=== PATIENT | male | born 1965 | race Caucasian/White ===

== ENCOUNTER 2019-08-10 12:51 | Emergency (ER) | payer OTHER ==
[2019-08-10 12:59] VITALS: RESP 18; TEMP 99
[2019-08-10] MEDS ORDERED: HYDROcodone/APAP 10-325MG 1 EACH TAB PO ONE (13:41)
[2019-08-10 14:03] VITALS: BP 121/78; PULSE 80
--- NOTE | 2019-08-10 14:16 | ED ---
Back Pain HPI - General Chief Complaint: Back Pain/Injury Stated Complaint: [facility]-back injury Source: patient Limitations: no limitations - History of Present Illness Initial Comments: 53-year-old male with chronic back pain who sees a pain specialist and gets monthly injections usually presents emergency department today for chief complaint of bilateral low back pain he states it feels typical of it chronic low back pain no changes that are worrisome he states he has been going up and down ladders at work doing strenuous activity is slightly increase his baseline back pain he states he also has not been able to get his monthly injections. Patient states when he expressed his work that he was having low back pain he was told to come to the [facility] for evaluation. Patient states he does not feel he needs to come here today. Patient denies any loss of bowel bladder control leg weakness loss of sensation of the lower extremities denies any urinary retention or loss of bladder control. Patient denies any fevers IV drug use, direct trauma or falls. Patient ambulatory on arrival in no distress. BP elevated-pt states hospitals make him anxious. - Related Data Allergies Allergy/AdvReac Type Severity Reaction Status Date / Time No Known Allergies Allergy Verified 08/10/19 12:54 Review of Systems ROS Statement: Those systems with pertinent positive or pertinent negative responses have been documented in the HPI. ROS Other: All systems not noted in ROS Statement are negative. Past Medical History Additional Past Medical History / Comment(s): chronic back pain History of Any Multi-Drug Resistant Organisms: None Reported Additional Past Surgical History / Comment(s): back surgery Past Psychological History: No Psychological Hx Reported Smoking Status: Never smoker Past Alcohol Use History: Occasional Past Drug Use History: None Reported General Exam - General Exam Comments Initial Comments: General: The patient is awake and alert, in no distress Eye: Pupils are equal, round and reactive to light, extra-ocular movements are intact. No nystagmus. There is normal conjunctiva bilaterally. No signs of icterus. Ears, nose, mouth and throat: There are moist mucous membranes and no oral lesions. Gastrointestinal: Soft, non-distended, non-tender abdomen without masses or organomegaly noted. There is no rebound or guarding present. Musculoskeletal: Normal back inspection. Band-like tenderness to palpation across low back paravertebral muscles. No midline tenderness to palpation fo the lumbar or thoracic spine. Normal ROM, no tenderness. Strength 5/5 of the LE b/l. Sensation intact of the LE b/l. radial pulses equal bilaterally 2+. Neurological: A&O x 3. CN II-XII intact grossly, There are no obvious motor or sensory deficits. Coordination appears grossly intact. Speech is normal. Skin: Skin is warm and dry and no rashes or lesions are noted. Psychiatric: Cooperative, appropriate mood & affect, normal judgment. Limitations: no limitations Course Vital Signs 08/10/19 08/10/19 12:55 13:58 Temperature 99 F Pulse Rate 92 80 Respiratory 18 18 Rate Blood Pressure 155/120 121/78 O2 Sat by Pulse 96 97 Oximetry Medical Decision Making - Medical Decision Making Given home dose of meds. No concerning findings. no trauma. Patient neurovascularly intact. At this time feel patient is safe for discharge with outpatient follow patient is agreeable to this care plan I did record patient rest take ibuprofen Tylenol as needed, apply heat to the radha as directed and f/u with PCP he is agreeable with care plan and discharge at this time. Disposition Clinical Impression: Chronic back pain Disposition: HOME SELF-CARE Condition: Good Instructions (If sedation given, give patient instructions): Low Back Strain (ED) Additional Instructions: Please use medication as discussed. Please follow-up with family doctor in the next 2 days. Please return to emergency room if the symptoms increase or worsen or for any other concerns. Is patient prescribed a controlled substance at d/c from ED?: No Referrals: [facility],Clinic [Primary Care Provider] - 1-2 days Time of Disposition: 14:15
== END 2019-08-10 14:37 | disposition home or self-care (01) ==
LOC: EC 12:51
DX: G89.29 Other chronic pain (principal); M54.5 Low back pain; Y99.0 Civilian activity done for income or pay
CPT/HCPCS: 99283

== ENCOUNTER → 2020-08-23 | Outpatient (CLI) | payer OTHER ==
--- NOTE | 2020-08-24 05:40 | MR ---
EXAMINATION TYPE: MR cervical spine wo con DATE OF EXAM: 08/23/2020 COMPARISON: None HISTORY: Neck pain into left shoulder, headaches Multiplanar multiecho imaging of the cervical spine without contrast. Cervical vertebra have normal alignment. Disc spaces are fairly normal. There is moderately large pos terior disc herniation at C5-6 into the spinal canal. The canal is narrowed to 5.5 mm. There is also small posterior disc herniation at C6-7. The canal is narrowed to 7.5 mm. There is no evidence of a fracture. Brainstem appears intact. There is no evidence of edema in the ce rvical spinal cord. There is some flattening of the cervical cord at C5-6. I see no bony destructive process. There is no evidence of cervical paraspinal mass. There is uncovertebral spurring and right side C4-5 neural foraminal impingement. IMPRESSION: There is moderate spinal stenosis at C5-6 with posterior concentric disc herniation. There is uncovertebral spurring and right side neural foraminal stenosis at C4-5. There is small posterior disc herniation at C6-7 without significant spinal stenosis.
== END | disposition home or self-care (01) ==
LOC: RADMRIMAIN 09:36
PROVIDERS: ATTEND Physician Assistant Medical
DX: M48.02 Spinal stenosis, cervical region (principal); M50.123 Cervical disc disorder at C6-C7 level with radiculopathy; M99.71 Connective tissue and disc stenosis of intervertebral foramina of cervical region
CPT/HCPCS: 72141

== ENCOUNTER → 2021-05-08 | Outpatient (CLI) | payer OTHER ==
--- NOTE | 2021-05-08 08:40 | CT ---
EXAMINATION TYPE: CT cervical spine wo con DATE OF EXAM: 05/08/2021 COMPARISON: X-ray dated 04/29/2021 HISTORY: Cervicalgia CT DLP: 686.30 mGycm Automated exposure control for dose reduction was used. TECHNIQUE: CT scan of the cervical spine is obtained without contrast, axial images are obtained, sa gittal and coronal reformatted images are also reviewed. FINDINGS: Good vertebral alignment without significant anterolisthesis or retrolisthesis. No definite vertebral body collapse or acute displaced fracture. 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 Degenerative changes of the cervical spine most evident at C5-6 and C6-7 levels with opposing endplat e osteophytosis, degenerated discs and multilevel uncovertebral osteoarthropathy. Multilevel facet os teoarthropathy is also noted most evident at C6-7, C7-T1 and T1-T2 levels. At C2-3 level: Posterior disc osteophyte complex and left facet osteoarthropathy, causing mild centra l spinal canal stenosis and moderate bilateral neuroforaminal stenosis. At C3-4 level: Posterior disc osteophyte complex more on the right side, causing mild central spinal canal stenosis, severe right and moderate to severe left neuroforaminal stenosis. At C4-5 level: Posterior disc osteophyte complex more on the right side, causing mild central spinal canal stenosis, severe right and moderate left neuroforaminal stenosis. At C5-6 level: Posterior disc osteophyte complex, causing severe central spinal canal stenosis and se lucinda bilateral neuroforaminal stenosis. At C6-7 level: Posterior disc osteophyte complex more on the left side, causing severe central spinal canal stenosis, moderate left and [id number] right neuroforaminal stenosis. Bilateral thyroid hypodensities, please correlate with thyroid ultrasound results. No paraspinal lesi on. IMPRESSION: Degenerative changes of the cervical spine with multilevel DDD, central spinal canal stenosis and dominick roforaminal stenosis, augmented by congenital factors as described above, please correlate clinically . Further MRI assessment can be considered.
== END | disposition home or self-care (01) ==
LOC: RADCTMAIN 06:32
PROVIDERS: ATTEND Orthopaedic Surgery
DX: M48.02 Spinal stenosis, cervical region (principal); M50.30 Other cervical disc degeneration, unspecified cervical region; M47.812 Spondylosis without myelopathy or radiculopathy, cervical region; M99.71 Connective tissue and disc stenosis of intervertebral foramina of cervical region
CPT/HCPCS: 72125

== ENCOUNTER → 2022-08-15 | Outpatient (CLI) | payer OTHER ==
--- NOTE | 2022-08-15 12:17 | XR ---
EXAMINATION TYPE: XR chest 2V DATE OF EXAM: 08/15/2022 11:42 AM COMPARISON: None TECHNIQUE: XR chest 2V Frontal and lateral views of the chest. CLINICAL INDICATION:Male, 56 years old with history of cervical stenosis, pre-operative; FINDINGS: Lungs/Pleura: There is no evidence of pleural effusion, focal consolidation, or pneumothorax. Pulmonary vascularity: Unremarkable. Heart/mediastinum: Cardiomediastinal silhouette is unremarkable. Musculoskeletal: No acute osseous pathology. IMPRESSION: No acute cardiopulmonary disease/process.
[2022-08-15 13:15] LABS: Partial Thromboplastin Time 23.5 sec (22.0-30.0); Prothrombin Time 10.5 sec (9.0-12.0)
[2022-08-15 16:13] LABS: Blood Urea Nitrogen 12.6 mg/dL (9.0-27.0); Calcium 9.6 mg/dL (8.7-10.3); Carbon Dioxide 26.2 mmol/L (21.6-31.8); Chloride 104 mmol/L (96-109); Glucose 97 mg/dL (70-110); Potassium 4.8 mmol/L (3.5-5.5); Sodium 141 mmol/L (135-145)
[2022-08-15 16:27] LABS: Appearance,Urine Clear (Clear); Basophils # (A) 0.04 X 10*3/uL (0.00-0.10); Basophils % (A) 0.5 %; Bilirubin,Urine Negative (Negative); Blood,Urine Negative (Negative); Color,Urine Dark Yellow (Yellow); Eosinophils # (A) 0.01 X 10*3/uL (0.04-0.35); Eosinophils % (A) 0.1 %; HCT 48.7 % (39.6-50.0); HGB 16.9 d/dL (12.0-15.0); Ketones,Urine Negative (Negative); Lymphocytes # (A) 2.05 X 10*3/uL (0.90-5.00); Lymphocytes % (A) 25.8 %; MCH 31.4 pg (27.0-32.0); MCHC 34.7 d/dL (32.0-37.0); MCV 90.4 FL (80.0-97.0); Mean Platelet Volume 11.3 FL (9.5-12.2); Monocytes # (A) 0.65 X 10*3/uL (0.20-1.00); Monocytes % (A) 8.2 %; NRBC Per 100 WBC 0 X 10*3/uL (0.00-0.01); Neutrophils # (A) 5.19 X 10*3/uL (1.80-7.70); Neutrophils % (A) 65.1 %; Nitrite,Urine Negative (Negative); PH, Urine 5.5; Platelet Count 215 X 10*3/uL (140-440); RBC 5.39 X 10*6/uL (4.40-5.60); RDW 12.6 % (11.5-14.5); Specific Gravity,Urine 1.021 (1.001-1.030); WBC 7.96 X 10*3/uL (4.50-10.00)
== END | disposition home or self-care (01) ==
LOC: LABPAT 11:24
PROVIDERS: ATTEND Orthopaedic Surgery Orthopaedic Surgery of the Spine
DX: Z01.818 Encounter for other preprocedural examination (principal); M48.02 Spinal stenosis, cervical region; I44.4 Left anterior fascicular block; R94.31 Abnormal electrocardiogram [ECG] [EKG]
CPT/HCPCS: 36415; 71046; 80048; 81003; 85025; 85610; 85730; 86850; 86900; 86901; 87070; 93005

== ENCOUNTER → 2022-11-26 | Outpatient (CLI) | payer OTHER ==
[2022-11-26 09:31] VITALS: BP 136/89; PULSE 80; RESP 16; TEMP 98.6
--- NOTE | 2022-11-26 14:32 | P.PAINPG ---
PQRS Measure Charge Sheet Comment: HISTORY OF PRESENT ILLNESS: A 57 yr old male as a referral from Dr Benton presents today w severe and chronic LBP x 2 yrs secondary to post laminectomy syndrome for evaluation. Pt states pain level is provoked at 8 /10 in intensity, constant, localized in the mid to lower lumbar spine, achy in character w shooting pain towards the BLEs. Pain is provoked by overactivity and sitting. Pain is alleviated by PT integrated with massage x7 weeks in August 2022, heat, ice, medications ([place], Robaxin, Ibu), use of a TENS unit, walking, repositioning and rest. Oswestry axial pain score at 31. PMH: OA, MDD/ Anxiety PSH: ACDF C5-C7 (2022), L4-S1 Laminectomy, LESIs >30 SH: Never smoker, Occasional ETOH use, No illicit drug use FH: Noncontributory All: See list Meds: See list REVIEW OF ORGAN SYSTEMS: CONSTITUTIONAL: No fevers or chills. No recent weight loss. NEUROLOGICAL: + numbness and tingling along the distal extremities. No seizure disorders or headaches. MUSCULOSKELETAL: + pain PSYCHIATRIC: Denies current depression or suicidal thoughts. Physical Examinations : Constitutional : Cooperative , not in acute distress . Neurologic : Cranial nerve II to XII intact. No focal neurological deficits. Psychiatric : alert & oriented x 3. Matching mood & appropriate affect. Judgment & insight intact. Musculoskeletal : Cervical Spine Motor strength in the deltoid and biceps: Normal right side. Normal Left side Motor strength biceps and the wrist extensors: Normal right side . Normal left side Motor strength in the triceps muscle: Normal right side. Normal left side Deep tendon reflexes: Normal at the biceps. Normal at Brachioradialis. Normal at triceps Vertebral body tenderness to deep palpation over L3 Cervical facet loading test: positive bilaterally Spurling test: positive bilaterally over L3-L4 Neck distraction test: positive bilaterally Spencer sign: positive bilaterally Lumbar spine Motor strength lower extremities ,thigh and legs 5/5 Right side , 5/5 Left side Deep tendon reflexes : Normal Knee Jerk. Normal Ankle Jerk Vertebral body tenderness over Headley Test positive Lumbar facet Loading Test: positive Right / positive Left Range of motion of the lumbar spine Flexion 30 degrees, extension 10 degrees Straight Leg Raise test: Left/ Right positive at degree Angi test: positive right / positive left. Severe tenderness over the Sacroiliac joint on the Right / Left sides Gaenslen test: positive bilaterally Seated flexion test: positive bilaterally. Sacral spine : Severe tenderness over the Sacroiliac joint: right side / left side Range of motion: Flexion of the lumbar spine <60 degrees Range of motion: Extension of the lumbar spine <20 degrees Gaenslen's Test positive Edil's Test positive Angi test: positive right side / left side Thigh Thrust Test Sacral Thrust Test Imaging: MRI noncontrast the lumbar spine from 10/28/22 reviewed Assessment/ Plan : Post laminectomy syndrome Recommendation of ALEXA L3-L4 #1. May need a series f injections for optimal pain relief. Risks, benefits of procedure discussed and patient verbalized understanding. Admits to anti- coagulant use or medical history of diabetes. Protocol for discontinuation/ continuation of medications eyad procedure discussed. Minimal anesthesia provided, if clinically indicated, consisting of Versed and Fentanyl. All questions answered. I have spent greater than 30 minutes on patient care today. Dr Sumner was available by phone for the evaluation of this patient. The time was used to review the medical records including relevant urine studies and Prescription history (MAPs), review of the available imaging, evaluation and examination of the patient, coordination of care with the medical staff and if applicable referring physicians, as well as creation of the medical record PQRS Narrative: Smoking Status Never smoker Home Medications: Ambulatory Orders HYDROcodone/APAP 10-325MG [[place] 10-325] 1 tab PO TID PRN 08/21/22 Ibuprofen [Motrin] 800 mg PO DIRECTED PRN 08/21/22 methocarbamoL [Methocarbamol] 750 mg PO TID PRN 08/21/22 Controlled Substance Measures - Controlled Substance Measures Is patient prescribed a controlled substance at discharge?: No
== END ==
LOC: PNWHC3 08:37
PROVIDERS: ATTEND Specialist
DX: M51.16 Intervertebral disc disorders with radiculopathy, lumbar region (principal); M96.1 Postlaminectomy syndrome, not elsewhere classified; M19.90 Unspecified osteoarthritis, unspecified site; F32.9 Major depressive disorder, single episode, unspecified; F41.9 Anxiety disorder, unspecified
CPT/HCPCS: 99211

== ENCOUNTER 2022-12-11 06:11 | Day surgery (SDC) | payer OTHER ==
[2022-12-11] MEDS ORDERED: LACTATED RINGERS 1,000 ML IV SCH (06:20)
[2022-12-11 06:54] VITALS: RESP 16; TEMP 97.4
[2022-12-11] MEDS ORDERED: IOPAMIDOL M200 10 ML VIAL ONE (07:04)
[2022-12-11] MEDS ORDERED: methylPREDNISolone ACETATE 80 MG/ML 1 ML VIAL ONE (07:04)
--- NOTE | 2022-12-11 07:10 | P.PCN ---
Date of Procedure: 12/11/22 Procedure(s) Performed: PREOPERATIVE DIAGNOSIS: 1- Lumbar Degenerative Disc Diseases 2-Lumbar spondylosis with Facet arthropathy without myelopathy. 3-lumbar spinal stenosis 4-previous lumbar laminectomy at L45 and L5-S1 POSTOPERATIVE DIAGNOSIS: 1-lumbar degenerative disc disease. 2-lumbar spondylosis with facet arthropathy without myelopathy. 3-lumbar spinal stenosis. 4-previous lumbar laminectomy at L4 5 and L5-S1 PROCEDURE 1. Lumbar epidural steroid injection under fluoroscopic guidance at the L3-4 level. (Fluoroscopy imaging was available in radiology department) 2. Lumbar epidurogram. ANESTHESIA: Lidocaine 1% 3 and then only. EBL: Minimal PROCEDURE INDICATION: The patient with low back pain and radiculitis symptoms unresponsive to conservative treatment. Fluoroscopy was used to optimize visualization of the needle placement and to maximize safety. PROCEDURE DESCRIPTION / TECHNIQUE: The patient was seen and identified in the preoperative area. Risks, benefits, complications including but not limited to infections ,bleeding ,allergic reaction to the medications ,nerve damage and not complete pain releife , and alternatives were discussed with the patient. The patient agreed to proceed with the procedure and signed the consent, and vital signs were stable. Patient was taken to the OR and time out was completed. The patient was placed in the prone position on procedure table and a pillow was placed under the abdomen to reduce lumbar lordosis. The lumbosacral area was prepped and draped in the usual sterile fashion.ere closely monitored during the procedure. Vital signs was monitered during the entire procedure. Using anterior-posterior fluoroscopy, the L3-4 interlaminar space was identified and the skin over this site was marked and then infiltrated with 1% lidocaine subcutaneously. Subsequently, a 20-gauge Tuohy epidural needle was inserted and advanced toward the epidural space using the ``Loss of resistance technique and guided by AP and lateral fluoroscopy. The correct needle position in the epidural space was verified with the injection of 2 mL of the water soluble contrast dye Isovue 200 contrast and observing an excellent epidurogram with the epidural spread of the dye, after negative aspiration for blood and CSF and in the absence of paresthesias. Again after negative aspiration, a 6 ml mixture containing 80 mg of Depo-medrol ( Preservetive Free ), and 2 ml of preservative free Normal Saline, and 2 ml of preservative free lidocaine 1% solution was injected and a washout of epidurogram was seen. Needle was withdrawn intact, skin was cleansed, and bandages were applied. COMPLICATIONS: None DISPOSITION / PLANS: The patient was placed in a supine position and transferred to the recovery area in a stable condition for observation. There was no evidence of lower extremity motor or sensory deficit after the procedure. Patient was discharged from the recovery room after meeting discharge criteria. Home discharge instructions were given to the patient by the staff. The patient was reexamined prior to discharge. The patient will schedule a follow up in the clinic in 2-4 weeks.
[2022-12-11 07:40] VITALS: BP 108/69; PULSE 67
--- NOTE | 2022-12-11 07:48 | FL ---
Intraoperative/procedural fluoroscopic services were provided. Total fluoroscopy time is 2 seconds wi th a total of 0 submitted images to PACS. Please see the operative/procedural note for further detail s. DAP: [id number] mGym2 Gycm2
== END 2022-12-11 07:26 | disposition home or self-care (01) ==
LOC: ORPAIN 06:11
PROVIDERS: ATTEND Specialist
DX: M51.16 Intervertebral disc disorders with radiculopathy, lumbar region (principal); M47.26 Other spondylosis with radiculopathy, lumbar region; M48.061 Spinal stenosis, lumbar region without neurogenic claudication; M96.1 Postlaminectomy syndrome, not elsewhere classified; Z79.1 Long term (current) use of non-steroidal anti-inflammatories (NSAID)
CPT/HCPCS: 62323; J1040; Q9966

== ENCOUNTER → 2022-12-31 | Outpatient (CLI) | payer OTHER ==
[2022-12-31 09:52] VITALS: BP 124/86; PULSE 74; RESP 16; TEMP 98.1
--- NOTE | 2022-12-31 14:45 | P.PAINPG ---
Objective - Vital Signs Vital signs: Intake & Output 12/30/22 12/31/22 12/31/22 18:59 06:59 18:59 Weight 88.451 kg PQRS Measure Charge Sheet Comment: HISTORY OF PRESENT ILLNESS: A 57 yr old male presents today w severe and chronic LBP x 2 yrs secondary to post laminectomy syndrome for evaluation s/p ALEXA L3-L4 #1. Pt states he experienced 70% pain relief x 3 wks s/p procedure. Pt states pain level is provoked at 6 /10 in intensity, constant, localized in the mid to lower lumbar spine, predominantly axial, achy in character w occasional shooting pain towards the back of the LEs. Pain is provoked by overactivity and sitting. Pain is alleviated by PT integrated with massage x7 weeks in August 2022, heat, ice, medications, use of a TENS unit, walking, repositioning and rest. Oswestry axial pain score at 30. Interventional procedures include ALEXA L3-L4 #1 Medications include [place], Robaxin, Ibu REVIEW OF ORGAN SYSTEMS: CONSTITUTIONAL: No fevers or chills. No recent weight loss. NEUROLOGICAL: + numbness and tingling along the distal extremities. No seizure disorders or headaches. MUSCULOSKELETAL: + pain PSYCHIATRIC: Denies current depression or suicidal thoughts. Physical Examinations : Constitutional : Cooperative , not in acute distress . Neurologic : Cranial nerve II to XII intact. No focal neurological deficits. Psychiatric : alert & oriented x 3. Matching mood & appropriate affect. Judgment & insight intact. Musculoskeletal : Cervical Spine Motor strength in the deltoid and biceps: Normal right side. Normal Left side Motor strength biceps and the wrist extensors: Normal right side . Normal left side Motor strength in the triceps muscle: Normal right side. Normal left side Deep tendon reflexes: Normal at the biceps. Normal at Brachioradialis. Normal at triceps Vertebral body tenderness to deep palpation over L3 Cervical facet loading test: positive bilaterally Spurling test: positive bilaterally over L3-L4 Neck distraction test: positive bilaterally Spencer sign: positive bilaterally Lumbar spine Motor strength lower extremities ,thigh and legs 5/5 Right side , 5/5 Left side Deep tendon reflexes : Normal Knee Jerk. Normal Ankle Jerk Vertebral body tenderness over Headley Test positive Lumbar facet Loading Test: positive Right / positive Left Range of motion of the lumbar spine Flexion 30 degrees, extension 10 degrees Straight Leg Raise test: Left/ Right positive at degree Angi test: positive right / positive left. Severe tenderness over the Sacroiliac joint on the Right / Left sides Gaenslen test: positive bilaterally Seated flexion test: positive bilaterally. Sacral spine : Severe tenderness over the Sacroiliac joint: right side / left side Range of motion: Flexion of the lumbar spine <60 degrees Range of motion: Extension of the lumbar spine <20 degrees Gaenslen's Test positive Edil's Test positive Angi test: positive right side / l eft side Thigh Thrust Test Sacral Thrust Test Imaging: MRI noncontrast the lumbar spine from 10/28/22 reviewed Assessment/ Plan : Post laminectomy syndrome Recommendation of ALEXA L3-L4 #2. May need a series f injections for optimal pain relief. Risks, benefits of procedure discussed and patient verbalized understanding. Admits to anti- coagulant use or medical history of diabetes. Protocol for discontinuation/ continuation of medications eyad procedure discussed. Minimal anesthesia provided, if clinically indicated, consisting of Versed and Fentanyl. All questions answered. I have spent greater than 30 minutes on patient care today. Dr Sumner was available by phone for the evaluation of this patient. The time was used to review the medical records including relevant urine studies and Prescription history (MAPs), review of the available imaging, evaluation and examination of the patient, coordination of care with the medical staff and if applicable referring physicians, as well as creation of the medical record PQRS Narrative: Smoking Status Never smoker Hx Alcohol Use (MH) No Home Medications: Ambulatory Orders HYDROcodone/APAP 10-325MG [[place] 10-325] 1 tab PO TID PRN 08/21/22 Ibuprofen [Motrin] 800 mg PO DIRECTED PRN 08/21/22 methocarbamoL [Methocarbamol] 750 mg PO TID PRN 08/21/22 Diclofenac Sodium [Voltaren] 75 mg PO TID PRN 12/10/22 Controlled Substance Measures - Controlled Substance Measures Is patient prescribed a controlled substance at discharge?: No
== END ==
LOC: PNWHC3 08:21
PROVIDERS: ATTEND Specialist
DX: M96.1 Postlaminectomy syndrome, not elsewhere classified (principal)
CPT/HCPCS: 99211

== ENCOUNTER 2023-01-15 07:02 | Day surgery (SDC) | payer OTHER ==
[~2023-01-15 07:02] MED LIST: LACTATED RINGERS 1,000 ML IV SCH
[2023-01-15 07:47] VITALS: RESP 16; TEMP 97.6
[2023-01-15] MEDS ORDERED: methylPREDNISolone ACETATE 80 MG/ML 1 ML VIAL ONE (08:01)
[2023-01-15] MEDS ORDERED: IOPAMIDOL M200 10 ML VIAL ONE (08:01)
--- NOTE | 2023-01-15 08:10 | P.PCN ---
Date of Procedure: 01/15/23 Procedure(s) Performed: PREOPERATIVE DIAGNOSIS: 1- Lumbar Degenerative Disc Diseases 2-Lumbar spondylosis with Facet arthropathy without myelopathy. 3-lumbar spinal stenosis 4-previous lumbar laminectomy at L45 and L5-S1 POSTOPERATIVE DIAGNOSIS: 1-lumbar degenerative disc disease. 2-lumbar spondylosis with facet arthropathy without myelopathy. 3-lumbar spinal stenosis. 4-previous lumbar laminectomy at L4 5 and L5-S1 PROCEDURE 1. Lumbar epidural steroid injection under fluoroscopic guidance at the L3-4 level. (Fluoroscopy imaging was available in radiology department) 2. Lumbar epidurogram. ANESTHESIA: Lidocaine 1% 3 and then only. EBL: Minimal PROCEDURE INDICATION: The patient with low back pain and radiculitis symptoms unresponsive to conservative treatment. Fluoroscopy was used to optimize visualization of the needle placement and to maximize safety. PROCEDURE DESCRIPTION / TECHNIQUE: The patient was seen and identified in the preoperative area. Risks, benefits, complications including but not limited to infections ,bleeding ,allergic reaction to the medications ,nerve damage and not complete pain releife , and alternatives were discussed with the patient. The patient agreed to proceed with the procedure and signed the consent, and vital signs were stable. Patient was taken to the OR and time out was completed. The patient was placed in the prone position on procedure table and a pillow was placed under the abdomen to reduce lumbar lordosis. The lumbosacral area was prepped and draped in the usual sterile fashion.ere closely monitored during the procedure. Vital signs was monitered during the entire procedure. Using anterior-posterior fluoroscopy, the L3-4 interlaminar space was identified and the skin over this site was marked and then infiltrated with 1% lidocaine subcutaneously. Subsequently, a 20-gauge Tuohy epidural needle was inserted and advanced toward the epidural space using the ``Loss of resistance technique and guided by AP and lateral fluoroscopy. The correct needle position in the epidural space was verified with the injection of 2 mL of the water soluble contrast dye Isovue 200 contrast and observing an excellent epidurogram with the epidural spread of the dye, after negative aspiration for blood and CSF and in the absence of paresthesias. Again after negative aspiration, a 6 ml mixture containing 80 mg of Depo-medrol ( Preservetive Free ), and 2 ml of preservative free Normal Saline, and 2 ml of preservative free lidocaine 1% solution was injected and a washout of epidurogram was seen. Needle was withdrawn intact, skin was cleansed, and bandages were applied. COMPLICATIONS: None DISPOSITION / PLANS: The patient was placed in a supine position and transferred to the recovery area in a stable condition for observation. There was no evidence of lower extremity motor or sensory deficit after the procedure. Patient was discharged from the recovery room after meeting discharge criteria. Home discharge instructions were given to the patient by the staff. The patient was reexamined prior to discharge. The patient will schedule a follow up in the clinic in 2-4 weeks.
--- NOTE | 2023-01-15 08:35 | FL ---
Fluoroscopy History: LESI dap [id number] fl 1 sec lesi with doctor nandini
[2023-01-15 08:36] VITALS: BP 119/71; PULSE 71
== END 2023-01-15 08:28 | disposition home or self-care (01) ==
LOC: ORPAIN 07:02
PROVIDERS: ATTEND Specialist
DX: M51.16 Intervertebral disc disorders with radiculopathy, lumbar region (principal); M47.26 Other spondylosis with radiculopathy, lumbar region; M48.061 Spinal stenosis, lumbar region without neurogenic claudication
CPT/HCPCS: 62323; J1040; Q9966

== ENCOUNTER → 2023-02-10 | Outpatient (CLI) | payer OTHER ==
[2023-02-10 12:34] VITALS: BP 148/104; PULSE 77; RESP 16; TEMP 97.9
--- NOTE | 2023-02-10 14:22 | P.PAINPG ---
PQRS Measure Charge Sheet Comment: HISTORY OF PRESENT ILLNESS: A 57 yr old male presents today w severe and chronic LBP x 2 yrs secondary to post laminectomy syndrome for evaluation s/p ALEXA L3-L4 #2. Pt states he experienced 70% pain relief x 3 wks s/p procedure. Pt states pain level is provoked at 6 /10 in intensity, constant, localized in the mid to lower lumbar spine, predominantly axial, achy in character w occasional shooting pain towards the back of the LEs. Pain is provoked by overactivity and sitting. Pain is alleviated by PT integrated with massage x7 weeks in August 2022, heat, ice, medications, use of a TENS unit, walking, repositioning and rest. Oswestry axial pain score at 28. Interventional procedures include ALEXA L3-L4 #2 Medications include [place], Robaxin, Ibu REVIEW OF ORGAN SYSTEMS: CONSTITUTIONAL: No fevers or chills. No recent weight loss. NEUROLOGICAL: + numbness and tingling along the distal extremities. No seizure disorders or headaches. MUSCULOSKELETAL: + pain PSYCHIATRIC: Denies current depression or suicidal thoug hts. Physical Examinations : Constitutional : Cooperative , not in acute distress . Neurologic : Cranial nerve II to XII intact. No focal neurological deficits. Psychiatric : alert & oriented x 3. Matching mood & appropriate affect. Judgment & insight intact. Musculoskeletal : Cervical Spine Motor strength in the deltoid and biceps: Normal right side. Normal Left side Motor strength biceps and the wrist extensors: Normal right side . Normal left side Motor strength in the triceps muscle: Normal right side. Normal left side Deep tendon reflexes: Normal at the biceps. Normal at Brachioradialis. Normal at triceps Vertebral body tenderness to deep palpation over L3 Cervical facet loading test: positive bilaterally Spurling test: positive bilaterally over L3-L4 Neck distraction test: positive bilaterally Spencer sign: positive bilaterally Lumbar spine Motor strength lower extremities ,thigh and legs 5/5 Right side , 5/5 Left side Deep tendon reflexes : Normal Knee Jerk. Normal Ankle Jerk Vertebral body tenderness over Headley Test positive Lumbar facet Loading Test: positive Right / positive Left Range of motion of the lumbar spine Flexion 30 degrees, extension 10 degrees Straight Leg Raise test: Left/ Right positive at degree Angi test: positive right / positive left. Severe tenderness over the Sacroiliac joint on the Right / Left sides Gaenslen test: positive bilaterally Seated flexion test: positive bilaterally. Sacral spine : Severe tenderness over the Sacroiliac joint: right side / left side Range of motion: Flexion of the lumbar spine <60 degrees Range of motion: Extension of the lumbar spine <20 degrees Gaenslen's Test positive Edil's Test positive Angi test: positive right side / left side Thigh Thrust Test Sacral Thrust Test Imaging: MRI noncontrast the lumbar spine from 10/28/22 reviewed Assessment/ Plan : Post laminectomy syndrome Recommendation of ALEXA L3-L4 #3. May need a series f injections for optimal pain relief. Risks, benefits of procedure discussed and patient verbalized underst anding. Admits to anti- coagulant use or medical history of diabetes. Protocol for discontinuation/ continuation of medications eyad procedure discussed. All questions answered. I have spent greater than 30 minutes on patient care today. Dr Sumner was available by phone for the evaluation of this patient. The time was used to review the medical records including relevant urine studies and Prescription history (MAPs), review of the available imaging, evaluation and examination of the patient, coordination of care with the medical staff and if applicable referring physicians, as well as creation of the medical record - Pain Location Bilateral Lower Back Non-Pharmacological Interventions: Heat, Ice, Inactivity, Physical Therapy, Pos ition/Reposition, Relaxation Technique Pharmacological Interventions: Epidural, PRN Medication, Scheduled Medication, Topical Medication PQRS Narrative: Smoking Status Never smoker Hx Alcohol Use (MH) No Home Medications: Ambulatory Orders HYDROcodone/APAP 10-325MG [[place] 10-325] 1 tab PO TID PRN 08/21/22 Ibuprofen [Motrin] 800 mg PO DIRECTED PRN 08/21/22 methocarbamoL [Methocarbamol] 750 mg PO TID PRN 08/21/22 Diclofenac Sodium [Voltaren] 75 mg PO TID PRN 12/10/22 Controlled Substance Measures - Controlled Substance Measures Is patient prescribed a controlled substance at discharge?: No
== END ==
LOC: PNWHC3 08:27
PROVIDERS: ATTEND Specialist
DX: M96.1 Postlaminectomy syndrome, not elsewhere classified (principal)
CPT/HCPCS: 99211

== ENCOUNTER 2023-02-17 06:57 | Day surgery (SDC) | payer OTHER ==
[2023-02-12 16:08] VITALS: BMI 27.9
[2023-02-17 07:39] VITALS: TEMP 97.8
[2023-02-17] MEDS ORDERED: methylPREDNISolone ACETATE 80 MG/ML 1 ML VIAL ONE (08:06)
[2023-02-17] MEDS ORDERED: IOPAMIDOL M200 10 ML VIAL ONE (08:06)
--- NOTE | 2023-02-17 08:13 | P.PCN ---
Date of Procedure: 02/17/23 Procedure(s) Performed: PREOPERATIVE DIAGNOSIS: 1- Lumbar Degenerative Disc Diseases 2-Lumbar spondylosis with Facet arthropathy without myelopathy. 3-lumbar spinal stenosis 4-previous lumbar laminectomy at L4-5, and L5-S1 POSTOPERATIVE DIAGNOSIS: 1-lumbar degenerative disc disease. 2-lumbar spondylosis with facet arthropathy without myelopathy. 3-lumbar spinal stenosis. 4-previous lumbar laminectomy at L4-5, and L5-S1 PROCEDURE 1. Lumbar epidural steroid injection under fluoroscopic guidance at the L3-4 level. (Fluoroscopy imaging was available in radiology department) 2. Lumbar epidurogram. ANESTHESIA: Lidocaine 1% 3 and then only. EBL: Minimal PROCEDURE INDICATION: The patient with low back pain and radiculitis symptoms unresponsive to conservative treatment. Fluoroscopy was used to optimize visualization of the needle placement and to maximize safety. PROCEDURE DESCRIPTION / TECHNIQUE: The patient was seen and identified in the preoperative area. Risks, benefits, complications including but not limited to infections ,bleeding ,allergic reaction to the medications ,nerve damage and not complete pain releife , and alternatives were discussed with the patient. The patient agreed to proceed with the procedure and signed the consent, and vital signs were stable. Patient was taken to the OR and time out was completed. The patient was placed in the prone position on procedure table and a pillow was placed under the abdomen to reduce lumbar lordosis. The lumbosacral area was prepped and draped in the usual sterile fashion.ere closely monitored during the procedure. Vital signs was monitered during the entire procedure. Using anterior-posterior fluoroscopy, the L3-4 interlaminar space was identified and the skin over this site was marked and then infiltrated with 1% lidocaine subcutaneously. Subsequently, a 20-gauge Tuohy epidural needle was inserted and advanced toward the epidural space using the ``Loss of resistance technique and guided by AP and lateral fluoroscopy. The correct needle position in the epidural space was verified with the injection of 2 mL of the water soluble contrast dye Isovue 200 contrast and observing an excellent epidurogram with the epidural spread of the dye, after negative aspiration for blood and CSF and in the absence of paresthesias. Again after negative aspiration, a 6 ml mixture containing 80 mg of Depo-medrol ( Preservetive Free ), and 2 ml of preservative free Normal Saline, and 2 ml of preservative free lidocaine 1% solution was injected and a washout of epidurogram was seen. Needle was withdrawn intact, skin was cleansed, and bandages were applied. COMPLICATIONS: None DISPOSITION / PLANS: The patient was placed in a supine position and transferred to the recovery area in a stable condition for observation. There was no evidence of lower extremity motor or sensory deficit after the procedure. Patient was discharged from the recovery room after meeting discharge criteria. Home discharge instructions were given to the patient by the staff. The patient was reexamined prior to discharge. The patient will schedule a follow up in the clinic in 2-4 weeks.
[2023-02-17 08:57] VITALS: BP 119/80; PULSE 73; RESP 18
--- NOTE | 2023-02-17 10:23 | FL ---
Fluoroscopy INDICATION: Pain FINDINGS: Fluoroscopy time: 3.6 seconds. Total dose area product (DAP) in uGy*m?, mGy*cm? (or similar): 0.31228 Images obtained: 3. IMPRESSION: 1. Documentation of fluoroscopy.
== END 2023-02-17 08:37 | disposition home or self-care (01) ==
LOC: ORPAIN 06:57
PROVIDERS: ATTEND Specialist
DX: M51.36 Other intervertebral disc degeneration, lumbar region (principal); M48.061 Spinal stenosis, lumbar region without neurogenic claudication; M47.816 Spondylosis without myelopathy or radiculopathy, lumbar region
CPT/HCPCS: 62323; J1040; Q9966

== ENCOUNTER → 2023-03-09 | Outpatient (CLI) | payer OTHER ==
[2023-03-09 09:13] VITALS: BP 143/92; PULSE 74; RESP 16; TEMP 97.3
--- NOTE | 2023-03-09 14:51 | P.PAINPG ---
PQRS Measure Charge Sheet Comment: HISTORY OF PRESENT ILLNESS: A 57 yr old male presents today w severe and chronic LBP x 2 yrs secondary to L4-S1 laminectomy syndrome for evaluation s/p ALEXA L3-L4 #3. Pt states he experienced 80% pain relief x 3 wks s/p procedure. Pt states pain level is provoked at 4 /10 in intensity, constant, localized in the mid to lower lumbar spine, predominantly axial, achy in character w occasional shooting pain towards the back of the LEs. Pain is provoked by overactivity and sitting. Pain is alleviated by PT integrated with massage x7 weeks in August 2022, alternating heat & ice, medications, topical, use of a TENS unit, walking, repositioning and rest. Oswestry axial pain score at 25. Interventional procedures include ALEXA L3-L4 #3 Medications include [place], Robaxin, Ibu, Voltaren gel REVIEW OF ORGAN SYSTEMS: CONSTITUTIONAL: No fevers or chills. No recent weight loss. NEUROLOGICAL: + numbness and tingling along the distal extremities. No seizure disorders or headaches. MUSCULOSKELETAL: + pain PSYCHIATRIC: Denies current depression or suicidal thoughts. Physical Examinations : Constitutional : Cooperative , not in acute distress . Neurologic : Cranial nerve II to XII intact. No focal neurological deficits. Psychiatric : alert & oriented x 3. Matching mood & appropriate affect. Judgment & insight intact. Musculoskeletal : Cervical Spine Motor strength in the deltoid and biceps: Normal right side. Normal Left side Motor strength biceps and the wrist extensors: Normal right side . Normal left side Motor strength in the triceps muscle: Normal right side. Normal left side Deep tendon reflexes: Normal at the biceps. Normal at Brachioradialis. Normal at triceps Vertebral body tenderness to deep palpation over L3 Cervical facet loading test: positive bilaterally Spurling test: positive bilaterally over L3-L4 Neck distraction test: positive bilaterally Spencer sign: positive bilaterally Lumbar spine Motor strength lower extremities ,thigh and legs 5/5 Right side , 5/5 Left side Deep tendon reflexes : Normal Knee Jerk. Normal Ankle Jerk Vertebral body tenderness over Headley Test positive Lumbar facet Loading Test: positive Right / positive Left Range of motion of the lumbar spine Flexion 30 degrees, extension 10 degrees Straight Leg Raise test: Left/ Right positive at degree Angi test: positive right / positive left. Severe tenderness over the Sacroiliac joint on the Right / Left sides Gaenslen test: positive bilaterally Seated flexion test: positive bilaterally. Sacral spine : Severe tenderness over the Sacroiliac joint: right side / left side Range of motion: Flexion of the lumbar spine <60 degrees Range of motion: Extension of the lumbar spine <20 degrees Gaenslen's Test positive Edil's Test positive Angi test: positive right side / left side Thigh Thrust Test Sacral Thrust Test Imaging: MRI noncontrast the lumbar spine from 10/28/22 reviewed Assessment/ Plan : L4-S1 post laminectomy syndrome Recommendation of PT w a focus on traction/ decompression of lumbar spine M51.36. All questions answered. I have spent greater than 30 minutes on patient care today. Dr Sumner was available by phone for the evaluation of this patient. The time was used to review the medical records including relevant urine studies and Prescription history (MAPs), review of the available imaging, evaluation and examination of the patient, coordination of care with the medical staff and if applicable referring physicians, as well as creation of the medical record PQRS Narrative: Smoking Status Never smoker Hx Alcohol Use (MH) No Home Medications: Ambulatory Orders HYDROcodone/APAP 10-325MG [[place] 10-325] 1 tab PO TID PRN 08/21/22 Ibuprofen [Motrin] 800 mg PO DIRECTED PRN 08/21/22 methocarbamoL [Methocarbamol] 750 mg PO TID PRN 08/21/22 Diclofenac Sodium [Voltaren] 75 mg PO TID PRN 12/10/22 Super Beets Supplement 1 dose PO DAILY 02/12/23 Controlled Substance Measures - Controlled Substance Measures Is patient prescribed a controlled substance at discharge?: No
== END ==
LOC: PNWHC3 08:30
PROVIDERS: ATTEND Specialist
DX: M96.1 Postlaminectomy syndrome, not elsewhere classified (principal); M47.816 Spondylosis without myelopathy or radiculopathy, lumbar region
CPT/HCPCS: 99211

== ENCOUNTER → 2023-03-30 | Outpatient (CLI) | payer OTHER ==
[~2023-03-30] MED LIST changes: -LACTATED RINGERS 1,000 ML IV SCH; +REGADENOSON 0.4 MG/5 ML SYRINGE IV PRN
--- NOTE | 2023-03-30 12:04 | CA ---
Lexiscan Nuclear Stress Test Report Name: Edil Franks Exam Date: 03/30/2023 10:25 Exam Location: [place] Stress Ht (in): 70 Wt (lb): 200 BSA: 2.09 Ordering Phys: Lewis Ramos MD Referring Phys: Fabiola Fournier Technologist: Bryson Brantley Age: 57 Gender: M : 1965 Procedure CPT: Indications: R07.9 CHEST PAIN ICD-10 Codes: Patient History: Medications: KIM,,,, IBUPROFEN,,,, HYDROCODONE,,,, METHACARBINAL,,, Meds past 24 hrs: Pretest Chest Pain: STRESS TEST Lexiscan Protocol Exercise Duration (min:sec): 01:[address] Depressions (mm): Angina Score: Kapoor Score: Resting HR (bpm): 74 Peak HR (bpm): 109 Resting BP (mmHg): 132 / 83 Peak BP (mmHg): 124 / 76 MPHR: 162 Target HR: 138 % MPHR: 67 METS: 1.0 Total Dose: Peak Dose: Atropine: Double Product: 07393 BP Response: Stress Termination: INFUSION COMPLETE Stress Symptoms: CHEST PRESSURE Stress Summary: ECG ANALYSIS Resting ECG: Sinus rhythm. Normal conduction. No arrhythmias. Normal repolarization. Stress ECG: No ECG changes from baseline with Lexiscan infusion. CONCLUSIONS No ECG evidence of ischemia with Lexiscan infusion. Nuclear test results to follow. Dr. Angella Souza MD (Electronically Signed) Final Date: 30 March 2023 12:03
--- NOTE | 2023-03-30 18:06 | NM ---
EXAMINATION TYPE: NM stress lexiscan cardiolite DATE OF EXAM: 03/30/2023 COMPARISON: NONE CLINICAL INDICATION: Male, 57 years old with history of R07.9 CHEST PAIN; TECHNIQUE: After the intravenous administration of 10.17 mCi Tc 99m Sestamibi - Cardiolite resting S PECT images acquired 45 minutes post injection. The patient received 0.4mg Lexiscan, 26.5 mCi Tc 99m Sestamibi - Stress images obtained [address] injection FINDINGS: Review of stress and rest SPECT images demonstrates perfusion defect on the mid anteroseptal wall par ticularly on rest suggesting attenuation artifact. No discrete reversibility is otherwise seen. Gated analysis shows normal wall motion with an estimated left ventricular ejection fraction of 68 %. TID is calculated at 0.95. IMPRESSION: No scintigraphic evidence for reversible ischemia.
== END | disposition home or self-care (01) ==
LOC: RADNMMAIN 08:21
PROVIDERS: ATTEND Internal Medicine Geriatric Medicine
DX: R07.9 Chest pain, unspecified (principal)
CPT/HCPCS: 93017; 78452; A9500; J2785

== ENCOUNTER → 2024-02-22 | Outpatient (CLI) | payer OTHER ==
--- NOTE | 2024-02-22 17:05 | US ---
EXAMINATION TYPE: US scrotum with doppler. DATE OF EXAM: 02/22/2024 COMPARISON: NONE CLINICAL INDICATION: Male, 58 years old with history of N50.812 LEFT TESTICULAR PAIN; left scrotal di scomfort, no swelling, no injury, hernia repair at age 6 TECHNIQUE: Grayscale, color Doppler and spectral Doppler imaging of the scrotum. FINDINGS: EXAM MEASUREMENTS: TESTICLES: Right Testicle: 3.7 x 2.7 x 2.0 cm Left Testicle: 4.1 x 2.9 x 1.9 cm EPIDIDYMIS HEAD: Right Epididymis: 1.8 cm - cluster of epi cysts = 1.3 x 1.5 x 1.2cm Left Epididymis: 1.6 cm - cluster of epi cysts = 2.1 x 2.3 x 1.3cm Doppler performed to assess for testicular vascularity; good bilateral color flow and spectral wavefo estrellita are seen. There is no evidence of testicular torsion. Presence of hydroceles: no Presence of varicoceles: yes, left IMPRESSION: 1. Positive. To be symmetric. 2. No evidence for intratesticular mass. 3. Appropriate arterial and venous spectral waveforms of the testes. 4. Bilateral epididymal head cysts. 5. Left varicocele [facility], , 02/22/2024 5:03 PM
== END | disposition home or self-care (01) ==
LOC: RADUSWWP 15:56
PROVIDERS: ATTEND Family Medicine
DX: I86.1 Scrotal varices (principal); N50.3 Cyst of epididymis
CPT/HCPCS: 76870; 93975